=== PATIENT | male | born 1980 | race American Indian/Alaskan Native ===

== ENCOUNTER 2019-07-07 11:42 | Emergency (ER) | payer OTHER ==
[2019-07-07 12:02] VITALS: BP 119/76
--- NOTE | 2019-07-07 12:11 | Emergency Department Report ---
Chief Complaint: Dental/Oral Stated Complaint: TOOTHACHE/FACE SWOLLEN Time Seen by Provider: 07/07/19 12:00 - HPI History of Present Illness: This is a 39-year-old male that presents to the ER with left sided facial swelling and dental pain since yesterday. Patient states 2 teeth cracked a few weeks ago but denies symptoms since. Currently using orajel and NSAIDs with minimal symptomatic relief. Denies difficulty swallowing, eating, facial swelling, following up with a dentist, fever, chills, headache, nausea, vomiting, chest pain or SOB. - ROS Review of Systems: CONSTITUTIONAL: Denies fever and chills. Denies weight loss. HEENT: Admits dental pain. Denies changes in vision and hearing. RESPIRATORY: Denies congestion. Denies SOB. CV: Denies palpitations and CP. GI: Denies abdominal pain, nausea, vomiting and diarrhea. MSK: Denies myalgia and joint pain. SKIN: Denies rash and pruritus. NEUROLOGICAL: Denies headache and syncope. PSYCHIATRIC: Denies recent changes in mood. Denies anxiety and depression. - Exam Vital Signs: Vital Signs 07/07/19 12:00 Temperature 98.5 F Pulse Rate 89 Respiratory 20 Rate Blood Pressure 119/76 O2 Sat by Pulse 100 Oximetry Physical Exam: GENERAL: Alert and oriented x 3. No acute distress. Well-nourished. EYES: EOMI. HENT: Partial tooth with dark brown dental caries center #17 & #18. Moist mucous membranes. LUNGS: Clear to auscultation bilaterally. No accessory muscle use. CARDIOVASCULAR: Regular rate and rhythm. No murmur. No JVD. ABDOMEN: Soft, non-tender and non-distended. EXTREMITIES: No edema. Non-tender. SKIN: No rashes or lesions. Warm. NEUROLOGIC: No focal neurological deficits. CN II-XII grossly intact, but not individually tested. PSYCHIATRIC: Cooperative. Appropriate mood and affect. MSE screening note: Focused history and physical exam performed. Due to findings the following was ordered: ED Medical Decision Making - Medical Decision Making This patient was examined by this provider. Dental pain and fractured teeth #17 & #18. Patient is discharged with amoxicillin, tramadol, and ibuprofen. Given list of dental clinics for follow up. At time of discharge, the patient does not seem toxic or ill in appearance. No acute signs of distress noted. Patient agrees to discharge treatment plan of care. No further questions noted by the patient. ED Disposition for MSE Clinical Impression: Pain, dental Fractured tooth Qualifiers: Encounter type: initial encounter Fracture type: closed Qualified Code(s): S02.5XXA - Fracture of tooth (traumatic), initial encounter for closed fracture Disposition: TO HOME OR SELFCARE Is pt being admited?: No Does the pt Need Aspirin: No Condition: Stable Instructions: Dental Caries (ED), Toothache (ED) Additional Instructions: Follow up with dental clinic from the list below. Prescriptions: Ibuprofen [Motrin 600 MG tab] 600 mg PO Q8H PRN #20 tablet PRN Reason: Pain Amoxicillin [Trimox CAP] 500 mg PO BID #14 capsule traMADol [Ultram 50 MG tab] 50 mg PO Q6HR PRN #12 tablet PRN Reason: Pain Referrals: [facility] [Outside] - 3-5 Days [facility] [Outside] - 3-5 Days [facility] [Outside] - 3-5 Days Forms: Work/School Release Form(ED) Time of Disposition: 12:48
== END 2019-07-07 13:23 | disposition home or self-care (01) ==
LOC: ED 11:42
DX: S02.5XXA Fracture of tooth (traumatic), initial encounter for closed fracture (principal); X58.XXXA Exposure to other specified factors, initial encounter; Y93.89 Activity, other specified; Y92.89 Other specified places as the place of occurrence of the external cause; Y99.8 Other external cause status

== ENCOUNTER 2021-04-23 15:24 | Emergency (ER) | payer OTHER ==
--- NOTE | 2021-04-23 17:12 | XRay Report ---
CHEST 2 VIEWS INDICATION / CLINICAL INFORMATION: Chest Pain. Midsternal chest pain. COMPARISON: None available. FINDINGS: SUPPORT DEVICES: None. HEART / MEDIASTINUM: No significant abnormality. LUNGS / PLEURA: No significant pulmonary or pleural abnormality. No pneumothorax. ADDITIONAL FINDINGS: No significant additional findings. IMPRESSION: 1. No acute findings. Signer Name: Sonny San MD Signed: 04/23/2021 5:07 PM Workstation Name: [id number]
[2021-04-23 17:28] LABS: Basophils % (Auto) 0.7 % (0.0-1.8); Eosinophils # (Auto) 0.3 K/mm3 (0.0-0.4); Eosinophils % (Auto) 4.2 % (0.0-4.3); Hematocrit 46.4 % (35.5-45.6); Hemoglobin 15.5 gm/dl (11.8-15.2); Lymphocytes # (Auto) 1.6 K/mm3 (1.2-5.4); Lymphocytes % (Auto) 27.4 % (13.4-35.0); Mean Corpuscular HGB Conc 33 % (32-34); Mean Corpuscular Volume 86 fl (84-94); Monocytes # (Auto) 0.7 K/mm3 (0.0-0.8); Monocytes % (Auto) 11.2 % (0.0-7.3); Red Cell Distribution Width 14.7 % (13.2-15.2)
[2021-04-23 17:47] LABS: Platelet Count 218 K/mm3 (140-440)
[2021-04-23 17:54] LABS: Alanine Aminotransferase 33 units/L (7-56); Albumin 5.1 g/dL (3.9-5); BUN/Creatinine Ratio 16; Blood Urea Nitrogen 11 mg/dL (9-20); Calcium 9.7 mg/dL (8.4-10.2); Hemolysis Index 3
[2021-04-23] MEDS ORDERED: CYCLOBENZAPRINE 10 MG TAB PO ONE (18:49)
[2021-04-23] MEDS ORDERED: dexAMETHasone 20 MG/5 ML VIAL IM ONE (18:49)
[2021-04-23] MEDS ORDERED: KETOROLAC 60 MG/2 ML INJ IM ONE (18:49)
[2021-04-23 18:54] LABS: Amphetamine Screen,Urine Negative; Benzodiazepines Screen,Urine Negative; Cocaine Screen,Urine Negative; Methadone Screen,Urine Negative; Opiate Screen,Urine Negative
[2021-04-23 18:58] VITALS: BP 144/92
[2021-04-23 19:08] LABS: Cannabinoid Screen,Urine Positive
--- NOTE | 2021-04-23 19:14 | Emergency Department Report ---
ED General Adult HPI - General Chief complaint: Back Pain/Injury Stated complaint: TIGHTNESS CHEST LOW BACK PAIN Time Seen by Provider: 04/23/21 18:36 Source: patient Mode of arrival: Ambulatory Limitations: No Limitations - History of Present Illness Initial comments: Patient is a 41-year-old male presents emergency room with complaints of low back pain that radiates down his left leg that began a week ago. He states a week ago he was walking when he felt his back locked up. He states his pain is worse with movement, bending, sitting on that side. He denies any fall or injury. He denies any fever, nausea, vomiting, diarrhea, abdominal pain, urinary symptoms, saddle numbness, numbness, weakness, bowel or bladder incontinence, urinary retention. He states he is also been having right-sided chest tightness. He states that he only feels a tightness whenever his back starts to lock up. He denies any radiation of the pain, shortness of breath, pleuritic chest pain, exertional chest pain, numbness, weakness, diaphoresis. Patient denies any past medical history. No allergies to medications. - Related Data Previous Rx's Medication Instructions Recorded Last Taken Type Amoxicillin [Trimox CAP] 500 mg PO BID #14 capsule 07/07/19 Unknown Rx Ibuprofen [Motrin 600 MG tab] 600 mg PO Q8H PRN #20 tablet 07/07/19 Unknown Rx traMADoL [Ultram 50 MG tab] 50 mg PO Q6HR PRN #12 tablet 07/07/19 Unknown Rx Menthol/Camphor [[place] Mccool 1 applicatio TP BID #18 oint...g. 04/23/21 Unknown Rx Ointment] Naproxen [EC-Naprosyn] 500 mg PO BID PRN #20 tablet. 04/23/21 Unknown Rx methOCARBAMOL [Robaxin TAB] 500 mg PO BID PRN #20 tab 04/23/21 Unknown Rx traMADoL [Ultram 50 MG tab] 50 mg PO Q6HR PRN #10 tablet 04/23/21 Unknown Rx Allergies Allergy/AdvReac Type Severity Reaction Status Date / Time No Known Allergies Allergy Verified 04/23/21 15:32 ED Review of Systems ROS: Stated complaint: TIGHTNESS CHEST LOW BACK PAIN Other details as noted in HPI Comment: All other systems reviewed and negative ED Past Medical Hx - Past Medical History Previous Medical History?: No - Surgical History Past Surgical History?: No - Social History Smoking Status: Current Every Day Smoker Substance Use Type: Alcohol, Marijuana - Medications Home Medications: Home Medications Medication Instructions Recorded Confirmed Last Taken Type Amoxicillin [Trimox CAP] 500 mg PO BID #14 capsule 07/07/19 Unknown Rx Ibuprofen [Motrin 600 MG tab] 600 mg PO Q8H PRN #20 tablet 07/07/19 Unknown Rx traMADoL [Ultram 50 MG tab] 50 mg PO Q6HR PRN #12 tablet 07/07/19 Unknown Rx Menthol/Camphor [[place] Mccool 1 applicatio TP BID #18 oint...g. 04/23/21 Unknown Rx Ointment] Naproxen [EC-Naprosyn] 500 mg PO BID PRN #20 tablet.dr 04/23/21 Unknown Rx methOCARBAMOL [Robaxin TAB] 500 mg PO BID PRN #20 tab 04/23/21 Unknown Rx traMADoL [Ultram 50 MG tab] 50 mg PO Q6HR PRN #10 tablet 04/23/21 Unknown Rx ED Physical Exam - General Limitations: No Limitations General appearance: alert, in no apparent distress - Head Head exam: Present: atraumatic, normocephalic - Eye Eye exam: Present: normal appearance - ENT ENT exam: Present: mucous membranes moist - Neck Neck exam: Present: normal inspection, full ROM. Absent: tenderness, meningismus - Respiratory Respiratory exam: Present: normal lung sounds bilaterally. Absent: respiratory distress, wheezes, rales, rhonchi, stridor, chest wall tenderness, accessory muscle use, decreased breath sounds, prolonged expiratory - Cardiovascular Cardiovascular Exam: Present: regular rate, normal rhythm, normal heart sounds. Absent: systolic murmur, diastolic murmur, rubs, gallop - Back Exam Back exam: Present: normal inspection, full ROM, paraspinal tenderness (left lumbar paraspinal ttp, no midline C-spine, T-spine, or L-spine ttp, no step offs, no deformities). Absent: vertebral tenderness - Neurological Exam Neurological exam: Present: alert, oriented X3, CN II-XII intact, normal gait. Absent: motor sensory deficit - Psychiatric Psychiatric exam: Present: normal affect, normal mood - Skin Skin exam: Present: warm, dry, intact ED Course Vital Signs 04/23/21 04/23/21 04/23/21 18:57 19:20 19:30 Temperature 98.4 F Pulse Rate 67 Respiratory 19 18 18 Rate Blood Pressure 144/92 [Left] O2 Sat by Pulse 99 Oximetry ED Medical Decision Making - Lab Data Result diagrams: 04/23/21 17:07 04/23/21 17:07 Lab Results 04/23/21 04/23/21 04/23/21 Range/Units 17:07 17:07 18:33 WBC 6.0 (4.5-11.0) K/mm3 RBC 5.40 H (3.65-5.03) M/mm3 Hgb 15.5 H (11.8-15.2) gm/dl Hct 46.4 H (35.5-45.6) % MCV 86 (84-94) fl MCH 29 (28-32) pg MCHC 33 (32-34) % RDW 14.7 (13.2-15.2) % Plt Count 218 (140-440) K/mm3 Lymph % (Auto) 27.4 (13.4-35.0) % Bacon % (Auto) 11.2 H (0.0-7.3) % Eos % (Auto) 4.2 (0.0-4.3) % Baso % (Auto) 0.7 (0.0-1.8) % Lymph # (Auto) 1.6 (1.2-5.4) K/mm3 Bacon # (Auto) 0.7 (0.0-0.8) K/mm3 Eos # (Auto) 0.3 (0.0-0.4) K/mm3 Baso # (Auto) 0.0 (0.0-0.1) K/mm3 Seg Neutrophils % 56.5 (40.0-70.0) % Seg Neutrophils # 3.4 (1.8-7.7) K/mm3 Sodium 135 L (137-145) mmol/L Potassium 4.1 (3.6-5.0) mmol/L Chloride 96.7 L (98-107) mmol/L Carbon Dioxide 26 (22-30) mmol/L Anion Gap 16 mmol/L BUN 11 (9-20) mg/dL Creatinine 0.7 L (0.8-1.3) mg/dL Estimated GFR > 60 ml/min BUN/Creatinine Ratio 16 % Glucose 91 (75-100) mg/dL Calcium 9.7 (8.4-10.2) mg/dL Total Bilirubin 0.40 (0.1-1.2) mg/dL AST 20 (5-40) units/L ALT 33 (7-56) units/L Alkaline Phosphatase 73 (35-129) units/L Troponin T < 0.010 (0.00-0.029) ng/mL Total Protein 8.1 (6.3-8.2) g/dL Albumin 5.1 H (3.9-5) g/dL Albumin/Globulin Ratio 1.7 % Lipase 22 (13-60) units/L Urine Opiates Screen Negative Urine Methadone Screen Negative Ur Barbiturates Screen Negative Ur Phencyclidine Scrn Negative Ur Amphetamines Screen Negative U Benzodiazepines Scrn Negative Urine Cocaine Screen Negative U Marijuana (THC) Screen Positive Drugs of Abuse Note Disclamer Vital Signs 04/23/21 04/23/21 04/23/21 18:57 19:20 19:30 Temperature 98.4 F Pulse Rate 67 Respiratory 19 18 18 Rate Blood Pressure 144/92 [Left] O2 Sat by Pulse 99 Oximetry - EKG Data EKG shows normal: sinus rhythm, axis, intervals, QRS complexes Rate: normal - EKG Data 04/23/21 19:12 ST elevation from normal early repolarization No STEMI - Radiology Data Radiology results: report reviewed Ordering Physician: JODIE MORROW Date of Service: 04/23/21 Procedure(s): XR chest routine 2V Accession Number(s): [id number] cc: JODIE MORROW Fluoro Time In Minutes: CHEST 2 VIEWS INDICATION / CLINICAL INFORMATION: Chest Pain. Midsternal chest pain. COMPARISON: None available. FINDINGS: SUPPORT DEVICES: None. HEART / MEDIASTINUM: No significant abnormality. LUNGS / PLEURA: No significant pulmonary or pleural abnormality. No pneumothorax. ADDITIONAL FINDINGS: No significant additional findings. IMPRESSION: 1. No acute findings. Signer Name: Sonny San MD Signed: 04/23/2021 5:07 PM Workstation Name: [id number] Transcribed By: DT Dictated By: Feliz San MD Electronically Authenticated By: Feliz San MD Signed Date/Time: 04/23/211706 DD/ 06 TD/TT: - Medical Decision Making Patient is a 41-year-old male presents emergency room with complaints of low back pain that radiates down his left leg that began a week ago. He states a week ago he was walking when he felt his back locked up. He states his pain is worse with movement, bending, sitting on that side. He denies any fall or injury. He denies any fever, nausea, vomiting, diarrhea, abdominal pain, urinary symptoms, saddle numbness, numbness, weakness, bowel or bladder incontinence, urinary retention. He states he is also been having right-sided chest tightness. He states that he only feels a tightness whenever his back starts to lock up. He denies any radiation of the pain, shortness of breath, pleuritic chest pain, exertional chest pain, numbness, weakness, diaphoresis. Patient denies any past medical history. No allergies to medications. Vitals are stable. On exam:left lumbar paraspinal ttp, no midline C-spine, T-spine, or L-spine ttp, no step offs, no deformities, no focal neuro deficits, ambulatory without difficulty. Symptoms and examination primus consistent with sciatica versus lumbar radiculopathy versus muscle strain. Patient given medications while in the emergency department with improvement of his symptoms. Orders placed prior to my examination. EKG with ST elevation from normal early repolarization, otherwise normal. Chest x-ray with no acute process. Labs are stable. Troponin is negative. Heart score is 1, his symptoms and examination do not appear consistent with ACS, he is low risk for cardiac event based on heart score. PERC criteria negative for PE, PE very unlikely. Patient given prescription for medications. Advised patient Please use medication as prescribed. Do not drive or operate machinery while taking muscle relaxer or severe pain medication. Follow-up with your primary care doctor. Follow-up with orthopedic/spine doctor. May use ice pack, heating pad, rest, and epsom salt bath. Do not use [place] balm while using heat or ice. Return to emergency room for new or worsening symptoms. Critical care attestation.: If time is entered above; I have spent that time in minutes in the direct care of this critically ill patient, excluding procedure time. ED Disposition Clinical Impression: Chest tightness Low back pain Qualifiers: Chronicity: acute Back pain laterality: left Sciatica presence: with sciatica Sciatica laterality: sciatica of left side Qualified Code(s): M54.42 - Lumbago with sciatica, left side Disposition: TO HOME OR SELFCARE Is pt being admited?: No Does the pt Need Aspirin: No Condition: Stable Instructions: Sciatica, Nonspecific Chest Pain, Adult, [id number] Additional Instructions: Please use medication as prescribed. Do not drive or operate machinery while taking muscle relaxer or severe pain medication. Follow-up with your primary care doctor. Follow-up with orthopedic/spine doctor. May use ice pack, heating pad, rest, and epsom salt bath. Do not use [place] balm while using heat or ice. Return to emergency room for new or worsening symptoms. Prescriptions: Naproxen [EC-Naprosyn] 500 mg PO BID PRN #20 tablet. PRN Reason: Pain, Moderate (4-6) methOCARBAMOL [Robaxin TAB] 500 mg PO BID PRN #20 tab PRN Reason: muscle spasm/pain Menthol/Camphor [[place] Mccool Ointment] 1 applicatio TP BID #18 oint...g. traMADoL [Ultram 50 MG tab] 50 mg PO Q6HR PRN #10 tablet PRN Reason: Pain , Severe (7-10) Referrals: RUSLAN PEDERSON MD [Staff Physician] - 3-5 Days [facility] [Provider Group] - 3-5 Days [facility] [Provider Group] - 3-5 Days ALEKSANDR CLINTON II, MD [Staff Physician] - 3-5 Days (neurosurgery/back pain) Forms: Work/School Release Form(ED) Time of Disposition: 19:13 HEART Score - HEART Score History: Slightly suspicious EKG: Normal Age: < 45 Risk factors: 1-2 risk factors Troponin: Troponin T < 0.010 ng/mL (0.00-0.029) 04/23/21 17:07 Troponin: < normal limit HEART Score: 1
--- NOTE | 2021-04-29 10:40 | Electrocardiograph Report ---
[facility] Test Date: 2021-04-23 Test Time: 15:42:28 Pat Name: TYRONE BRITT Department: Room: Gender: M Deboner: : 1980 Requested By: RON OCONNELL Order Number: [id number] Reading MD: Juan Almazan Measurements Intervals Thayer Rate: 74 P: 41 AK: 138 QRS: 72 QRSD: 90 T: 37 QT: 366 QTc: 405 Interpretive Statements Sinus rhythm ST elev, probable normal early repol pattern No previous ECG available for comparison Electronically Signed On 04-29-2021 10:40:45 EDT by Juan Almazan
== END 2021-04-23 19:30 | disposition home or self-care (01) ==
LOC: ED 15:24
DX: M54.5 Low back pain (principal); R07.89 Other chest pain; F17.200 Nicotine dependence, unspecified, uncomplicated; F12.90 Cannabis use, unspecified, uncomplicated; Z79.899 Other long term (current) drug therapy
CPT/HCPCS: 36415; 71046; 80053; 80307; 83690; 84484; 85025; 93005; 96372; 99283; J1100; J1885